=== PATIENT | female | born 1965 | race Caucasian/White ===

== ENCOUNTER 2020-03-28 17:52 | Emergency (ER) | payer BC, OTHER ==
[2020-03-28] MEDS ORDERED: Adenosine 6 MG/2 ML SDV IVPUSH ONE (18:05)
[2020-03-28] MEDS ORDERED: Lactated Ringers 1,000 ML IV ONE (18:11)
--- NOTE | 2020-03-28 18:13 | EDM.PDOC ---
ED HPI GENERAL MEDICAL PROBLEM - General Chief Complaint: Cardiovascular Problem Stated Complaint: RAPID HEART RATE Time Seen by Provider: 03/28/20 18:03 - History of Present Illness INITIAL COMMENTS - FREE TEXT/NARRATIVE: 54-year-old female presents the emergency room not feeling well. Patient was sent over here from the walk-in clinic where she thought maybe her ear was bothering her. And they noticed she was in a very fast heart rhythm and sent her right over here. She indeed had a rapid heart rate in the upper 150s. Apparently this started around 3:00 this afternoon. The patient has been having a lot of caffeinated beverages more so than normal this morning and has not really had much else to drink during the course of the day. The patient has no prior cardiac history. Patient has a strong family history of thyroid disorders and history is of heart attack and stroke in her parents and grandparents in their 70s. This patient has a history of ovarian cancer and is had surgery for this. She is also had a thyroid nodule that is been monitored for years. They stopped monitoring after no pack changer 5 or 6 years. Patient does not smoke. The patient initially sought medical treatment because of right ear pain. She has been using eardrops for several weeks and this is getting no better it sounds like they were using gentamicin ophthalmic but were not certain of this. It is not helped with her ear. - Related Data Allergies Allergy/AdvReac Type Severity Reaction Status Date / Time Sulfa (Sulfonamide Allergy Severe Rash Verified 03/28/20 18:03 Antibiotics) Home Meds: Home Meds Ciprofloxacin HCl/Dexameth [Ciprodex Otic Suspension] 7.5 ml OT ASDIRECTED #1 drops.susp 03/28/20 [Rx] Estrogens, Conjugated [Premarin] 0 mg PO DAILY 03/28/20 [History] Levothyroxine Sodium [Levoxyl] 25 mcg PO DAILY #15 tablet 03/28/20 [Rx] ED ROS GENERAL - Review of Systems Review Of Systems: See Below Constitutional: Reports: No Symptoms HEENT: Reports: Ear Pain Respiratory: Reports: No Symptoms Cardiovascular: Reports: Palpitations Endocrine: Reports: No Symptoms GI/Abdominal: Reports: No Symptoms : Reports: No Symptoms Musculoskeletal: Reports: No Symptoms Skin: Reports: No Symptoms Neurological: Reports: No Symptoms ED EXAM, GENERAL - Physical Exam Exam: See Below Exam Limited By: No Limitations General Appearance: Alert, No Apparent Distress, Obese Eye Exam: Bilateral Eye: Normal Inspection Ears: Normal External Exam, Normal Canal, Hearing Grossly Normal, Normal TMs, Other (On the left side on the right side she has an obvious external otitis.) Nose: Normal Inspection, Normal Mucosa, No Blood Throat/Mouth: Normal Inspection, Normal Lips, Normal Teeth, Normal Gums, Normal Oropharynx, Normal Voice, No Airway Compromise Head: Atraumatic, Normocephalic Neck: Normal Inspection, Supple, Non-Tender, Full Range of Motion. No: Lymphadenopathy (L), Lymphadenopathy (R) Respiratory/Chest: No Respiratory Distress, Lungs Clear, Normal Breath Sounds Cardiovascular: Regular Rate, Rhythm, No Murmur, Other (Significant edema sounds like she has had this for quite a long time nonpitting she attributes this to being overweight and driving 1000 miles a week) GI/Abdominal: Normal Bowel Sounds, Soft, Non-Tender Extremities: Normal Inspection, Other (Significant edema nonpitting) Neurological: Alert Skin Exam: Warm, Dry, Intact Course - Vital Signs Last Recorded V/S: Last Vital Signs Temp 35.7 C L 03/28/20 17:59 Pulse 108 H 03/28/20 18:10 Resp 16 03/28/20 18:10 BP 144/92 H 03/28/20 18:10 Pulse Ox 96 03/28/20 18:10 - Orders/Labs/Meds Orders: Active Orders 24 hr Category Date Time Status EKG Documentation Completion [RC] STAT Care 03/28/20 18:18 Active Lactated Ringers [Ringers, Lactated] 1,000 ml Med 03/28/20 18:11 Active IV .BOLUS Medication Orders Lactated Ringer's (Ringers, Lactated) 1,000 mls @ 500 mls/hr IV .BOLUS ONE Stop: 03/28/20 20:10 Last Admin: 03/28/20 18:17 Dose: 500 mls/hr Documented by: EFRAIN Labs: Laboratory Tests 03/28/20 03/28/20 03/28/20 Range/Units 18:01 18:01 18:01 WBC 11.82 H (3.98-10.04) K/mm3 RBC 4.90 (3.98-5.22) M/mm3 Hgb 13.9 (11.2-15.7) gm/dl Hct 42.5 (34.1-44.9) % MCV 86.7 (79.4-94.8) fl MCH 28.4 (25.6-32.2) pg MCHC 32.7 (32.2-35.5) g/dl RDW Std Deviation 55.3 H (36.4-46.3) fL Plt Count 574 H (182-369) K/mm3 MPV 10.7 (9.4-12.3) fl Neut % (Auto) 58.7 (34.0-71.1) % Lymph % (Auto) 28.3 (19.3-51.7) % [place] % (Auto) 8.7 (4.7-12.5) % Eos % (Auto) 1.8 (0.7-5.8) Baso % (Auto) 0.9 (0.1-1.2) % Neut # (Auto) 6.94 H (1.56-6.13) K/mm3 Lymph # (Auto) 3.34 (1.18-3.74) K/mm3 [place] # (Auto) 1.03 H (0.24-0.36) K/mm3 Eos # (Auto) 0.21 (0.04-0.36) K/mm3 Baso # (Auto) 0.11 H (0.01-0.08) K/mm3 Manual Slide Review Abnormal smear Sodium 142 (136-145) mEq/L Potassium 3.7 (3.5-5.1) mEq/L Chloride 104 (98-107) mEq/L Carbon Dioxide 25 (21-32) mEq/L Anion Gap 16.7 H (5-15) BUN 13 (7-18) mg/dL Creatinine 0.9 (0.55-1.02) mg/dL Est Cr Clr Drug Dosing 64.30 mL/min Estimated GFR (MDRD) > 60 (>60) mL/min BUN/Creatinine Ratio 14.4 (14-18) Glucose 106 (74-106) mg/dL Calcium 9.4 (8.5-10.1) mg/dL Magnesium 2.1 (1.8-2.4) mg/dl Total Bilirubin 0.5 (0.2-1.0) mg/dL AST 38 H (15-37) U/L ALT 70 H (14-59) U/L Alkaline Phosphatase 95 (46-116) U/L Troponin I 0.018 (0.00-0.056) ng/mL Total Protein 7.3 (6.4-8.2) g/dl Albumin 4.4 (3.4-5.0) g/dl Globulin 2.9 gm/dL Albumin/Globulin Ratio 1.5 (1-2) Free T4 1.04 (0.76-1.46) ng/dL TSH 3rd Generation 6.734 H (0.358-3.74) uIU/mL Meds: Medications Generic Name Dose Route Start Last Admin Trade Name Freq PRN Reason Stop Dose Admin Lactated Ringer's 1,000 mls @ 500 mls/hr 03/28/20 18:11 03/28/20 18:17 Ringers, Lactated IV 03/28/20 20:10 500 mls/hr .BOLUS ONE Administration Discontinued Medications Generic Name Dose Route Start Last Admin Trade Name Freq PRN Reason Stop Dose Admin Adenosine 6 mg 03/28/20 18:05 03/28/20 18:06 Adenocard IVPUSH 03/28/20 18:06 6 mg NOW ONE Administration - Re-Assessments/Exams Free Text/Narrative Re-Assessment/Exam: 03/28/20 19:41 Upon arrival to the emergency department she was found to be in SVT. She was given 6 mg of adenosine that converted her to a sinus tach rate of about 1 10-1 15 this gradually dropped into the 90s. And she is doing much better. She is doing well at this point. We had a long discussion regarding her ear treatment and will go ahead and give her prescription for Ciprodex drops. Her thyroid is a problem at this point her TSH is 6.734. Upper end of normal 3.7 we are awaiting her free T4 anticipate starting her on Levoxyl 25 mcg daily until she can follow-up with her regular physician back in [place] 03/28/20 20:00 Her free T4 was in the normal range we will hold off on using Levoxyl at this point the patient will follow up with her thyroid doctor when she gets back home. I called [facility] and had them cancel this prescription. Departure - Departure Time of Disposition: 19:44 Disposition: Home, Self-Care 01 Clinical Impression: SVT (supraventricular tachycardia), External otitis of right ear, Hypothyroid Prescriptions: Ciprofloxacin HCl/Dexameth [Ciprodex Otic Suspension] 7.5 ml OT ASDIRECTED #1 drops.susp Levothyroxine Sodium [Levoxyl] 25 mcg PO DAILY #15 tablet Referrals: PCP,Not In Area [Primary Care Provider] - Forms: ED Department Discharge Additional Instructions: Return to the emergency room with any questions problems or worsening symptoms. It is essential you follow-up with your regular healthcare provider or your thyroid doctor as soon as you get back home. Use the Ciprodex drops 4 to 5 drops to your right ear twice daily for 7 days Sepsis Event Note (ED) - Evaluation Sepsis Screening Result: No Definite Risk - Focused Exam Vital Signs: Vital Signs Temp Pulse Resp BP Pulse Ox 03/28/20 18:10 108 H 16 144/92 H 96 03/28/20 18:07 115 H 03/28/20 17:59 35.7 C L 159 H 16 156/128 H 95 - My Orders Last 24 Hours: My Active Orders 03/28/20 18:11 Lactated Ringers [Ringers, Lactated] 1,000 ml IV .BOLUS 03/28/20 18:18 EKG Documentation Completion [RC] STAT - Assessment/Plan Last 24 Hours: My Active Orders 03/28/20 18:11 Lactated Ringers [Ringers, Lactated] 1,000 ml IV .BOLUS 03/28/20 18:18 EKG Documentation Completion [RC] STAT
--- NOTE | 2020-03-28 18:50 | CR ---
Chest: Portable view of the chest was obtained. Comparison: No prior chest x-ray is available. Heart size and mediastinum are normal. Lungs show no acute parenchymal change. Bony structures are grossly intact. Impression: 1. Nothing acute is appreciated on portable chest x-ray. Diagnostic code #1 Study was dictated in MDT
== END 2020-03-28 20:23 | disposition home or self-care (01) ==
LOC: JD.ED 17:52
DX: I47.1 Supraventricular tachycardia (principal); H60.91 Unspecified otitis externa, right ear; E03.9 Hypothyroidism, unspecified; Z88.2 Allergy status to sulfonamides; Z79.899 Other long term (current) drug therapy
CPT/HCPCS: 36415; 71045; 80053; 83735; 84439; 84443; 84484; 85025; 93005; 96361; 96374; 99285; J0153; J7120